=== PATIENT | male | born 1970 | race Caucasian/White ===

== ENCOUNTER 2021-08-26 14:15 | Emergency (ER) | payer BC, OTHER ==
[2021-08-26] MEDS ORDERED: Sodium Chloride 0.9% 1,000 ML IV ONE (14:59)
[2021-08-26] MEDS ORDERED: Ondansetron 4 MG/2 ML SDV IVPUSH ONE (15:12)
[2021-08-26] MEDS ORDERED: Acetaminophen 325 MG Tab PO ONE (16:14)
== END 2021-08-26 17:30 | disposition home or self-care (01) ==
LOC: JD.ED 14:15
DX: T67.5XXA Heat exhaustion, unspecified, initial encounter (principal); E78.00 Pure hypercholesterolemia, unspecified; I10 Essential (primary) hypertension; Z79.82 Long term (current) use of aspirin; Z79.899 Other long term (current) drug therapy; Z86.16 Personal history of COVID-19
CPT/HCPCS: 36415; 71045; 80053; 84484; 85025; 85610; 96361; 96374; 99285; A9270; J2405; J7030; 93010; 99284